=== PATIENT | female | born 1945 | race Caucasian/White ===

== ENCOUNTER → 2016-04-25 | Day surgery (SDC) | payer OTHER, MEDICARE ==
[~2016-04-25] MED LIST: AMITIZA24 MC1 PO; AUGMENTIN 875-1 EACH PO; BACLOFEN10 M1 PO; DAILY MULTIPLE1 EACH PO; FUROSEMIDE20 M1 PO; GABAPENTIN300 M2 PO; GAS-X125 M1 PO; LORAZEPAM0.5 M1 PO; MAPAP325 M1 PO; METOPROLOL TART25 M1 PO; OMEPRAZOLE40 M1 PO; PERCOCET 5-3251 EACH PO; POTASSIUM CHLO20 ME2 PO; PRAVASTATIN SOD10 M2 PO; SERTRALINE HCL100 MG PO; SERTRALINE HCL25 MG PO; SERTRALINE HCL50 MG PO; STOOL SOFTENER100 M3 PO; TYLENOL EXTRA500 M2 PO; VITAMIN D250000 UNIT PO; WARFARIN SODIUM3 M1 PO; ZOLOFT100 M1 PO
[2016-04-25 08:21] LABS: PT 20.3 SEC (9.4-12.5)
--- NOTE | 2016-04-25 15:33 | Operative Report ---
Operative/Inv Procedure Report Surgery Date: 04/25/16 Name of Procedure: left renal ESWL: cystoscopy Pre-Operative Diagnosis: left staghorn calculus, hematuria Post-Operative Diagnosis: same;no bladder tumor Estimated Blood Loss: scant Surgeon/Concaving Machine Operator: ALEX PAT MD Anesthesia: laryngeal mask airway Complications: none Operative/Procedure Note Note: The patient was taken to the operating room and placed on the ESWL table in supine position. With the patient awake and participating, timeout was performed to confirm correct identity, procedure, laterality, anesthesia, and other pertinent ash-operative information. After adequate anesthesia, the patient was positioned so that the patient's left flank was positioned over the table cut-out, overlying the dome of the treatment head. Once the patient was adequately sedated, fluoroscopy, as well as Renal ultrasound was used to locate the LEFT renal stone. Renal US confirmed the presence of the stone which measured it to be approximately 4 cm staghorn stone. The stone was faintly visible with fluoroscopy. Renal US revealed, no hydronephrosis, and no solid tumor, and presence of the stone. The position of the stone was optimized by using fluoroscopy in AP and oblique views;placing the stone within the ESWL c- arm crosshairs. Once the stone's position was optimized, the LEFT renal E.S.W.L. was initiated at low energy level. After noting the patient's tolerance to the shockwaves, the intensitiy was ramped up to maximum level. At the end of the procedure, the left renal stone had dissintegrated. Of note, a total of 2500 shockwaves were delivered to the stone. The patient was then frog legged, draped and prepped in the usual surgical fashion. A 22 [place] cystoscope sheath with 30 angle lens was inserted without difficulty. Upon entering the bladder, the bladder was noted to be free of tumor free of stone. The cystoscope was then removed. The patient tolerated the ESWL procedures well, was awakened, then taken to recovery in satisfactory condition via stretcher. The patient was dischared home with pain medications, diet orders, and intructions to catch fragments by straining the urine. The patient to to have follow-up renal ultrasound and KUB in 1 to 2 weeks, prior to follow-up visit in my office. He will then proceed with metabolic stone work-up. Discharge Disposition: PACU CC: BI MUJICA,ALEX
== END ==
LOC: STS 04:08
PROVIDERS: Urology
DX: N20.0 Calculus of kidney (principal); R31.9 Hematuria, unspecified; I10 Essential (primary) hypertension; I25.9 Chronic ischemic heart disease, unspecified; I69.954 Hemiplegia and hemiparesis following unspecified cerebrovascular disease affecting left non-dominant side; E11.9 Type 2 diabetes mellitus without complications; I48.91 Unspecified atrial fibrillation
CPT/HCPCS: J2250